=== PATIENT | female | born 1970 | race Caucasian/White ===

== ENCOUNTER → 2019-10-25 | Outpatient (CLI) | payer OTHER | END | disposition home or self-care (01) | LOC: CT 00:12 | DX: R91.8 Other nonspecific abnormal finding of lung field (principal); M25.50 Pain in unspecified joint; C50.919 Malignant neoplasm of unspecified site of unspecified female breast; C50.412 Malignant neoplasm of upper-outer quadrant of left female breast; J98.4 Other disorders of lung; Z90.13 Acquired absence of bilateral breasts and nipples; Z98.82 Breast implant status; Z45.2 Encounter for adjustment and management of vascular access device; Z78.0 Asymptomatic menopausal state ==